=== PATIENT | female | born 1980 | race Caucasian/White ===

== ENCOUNTER 2023-07-18 15:55 | Outpatient (REF) | payer SELFPAY ==
[2023-07-19 14:16] LABS: BV Int Neg Control Negative (Negative); BV Int Pos Control Positive (Positive)
== END 2023-07-18 15:56 | disposition home or self-care (01) ==
LOC: HO.CHCLNP 15:55
PROVIDERS: Visit Provider Family Medicine
DX: N76.0 Acute vaginitis (principal)
CPT/HCPCS: 87480; 87510; 87660

== ENCOUNTER 2023-11-04 17:21 | Outpatient (REF) | payer OTHER, SELFPAY | END 2023-11-04 17:22 | disposition home or self-care (01) | LOC: HO.HHCLNP 17:21 | PROVIDERS: Visit Provider Family Medicine | DX: R30.0 Dysuria (principal); N89.8 Other specified noninflammatory disorders of vagina | CPT/HCPCS: 36415; 81513; 87086 ==

== ENCOUNTER 2024-07-07 13:08 | Outpatient (REF) | payer OTHER, SELFPAY | END 2024-07-07 13:09 | disposition home or self-care (01) | LOC: HO.CHCLNP 13:08 | PROVIDERS: Visit Provider Pediatrics | DX: R30.0 Dysuria (principal); R82.79 Other abnormal findings on microbiological examination of urine | CPT/HCPCS: 87086; 87088; 87186 ==

== ENCOUNTER 2024-11-19 13:58 | Outpatient (REF) | payer OTHER, SELFPAY ==
--- OUTSIDE RECORDS SUMMARY | 2024-11-19 16:35 | XMS_ITS | Encounter Summary ---
Author Organization [facility] Address [address] [place] [address] 7t [place] [address] Care Team Providers Care Director Of Cardiology Name Role Phone Kimber Solorio MD Primary Care Provider [phone] Encounter Details Date Type Department Care Team (Late st Contact Info) Description 08/25/2024 Orders Only [place] [facility] [address] [place] [address] Provider, MD Ade Social History Tobacco Use Types Packs/Day Years Used Date Smoking Tobacco: Never Passive Smoke Exposure: Never Smokeless Tobacco: Never Alcohol Use Standard Drinks/Week Comments Never 0 (1 standard drink = 0.6 oz pur e alcohol) Comments No Sex and Gender Information Value Date Recorded Sex Assigned at Female 08/27/2022 10:14 AM EDT Legal Sex Female 10:14 AM EDT Gender Identity Female 08/27/2022 10:14 AM EDT Sexual Orientation Straight 08/27/2022 10 :14 AM EDT documented as of this encounter Plan of Treatment Not on file documented as of this encounter Procedures Procedure Name Priority Date/Time Associated Diagnosis Comments MAMMO DIAGNOSTIC TOMOSYNTHESIS LEFT Routine 08/25/2024 1:53 PM EDT documented in this encounter Results * MAMMO DIAGNOSTIC TOMOSYNTHESIS LEFT (08/25/2024 1:53 PM EDT) Anatomical Region Laterality Modality Mammography Historical Provider MD NICHOLAS BI PROCEDURES Final R esult documented in this encounter Visit Diagnoses Not on filedocumented in this encounter Care Teams Director Of Cardiology Relationship Specialty Start Date End Date Kimber Solorio MD [address] [place], [place] [phone] PCP - General Family Medicine 07/06/20 documented as of this encounter
--- OUTSIDE RECORDS SUMMARY | 2024-11-19 16:35 | XMS_ITS | Encounter Summary ---
Author Organization [facility] [employer] Address [address] [facility] 7 [place] [address] Care Team Providers Care Art Critic Name Role Phone Kimber Solorio MD Primary Care Provider [phone] Reason for Visit * Reason Onset Date Comments Nurse Triage 09/25/2023 Encounter Details Date Type Department Care Team ([facility] st Contact Info) Description 09/25/2023 Telephone [facility] [address] [place], [place] [phone] Kimber Solorio MD [address] [place] [address] Nurse Triage Social History Tobacco Use Types Packs/Day Years [...] AM EDT documented as of this encounter Miscellaneous Notes * Telephone Encounter - Dayan Cortes RN - 09/25/2023 10:11 AM EST Triage call Pt was home tested + for Covid 09/23/23. Pt is calling with vaginal symptoms of itchiness, white cottage cheese like discharge. Pt has tried OTC antifungal medications without effect. Pt was prescribed metrondizole 0/75% 09/05/23 with good effect. Also diflucan 150mg prescribed 07/18/23.Pt is requesting medication prescription be sent to pharmacy. Advised will forward to PCP and nursing team for follow up and Pt agreed to this plan. Protocol Used: Vaginal Symptoms (Adult) Protocol-Based Disposition: See in Office or Video Visit within 3 Days Positive Triage Questions: * Symptoms of a yeast infection (i.e., itchy, white discharge, not bad smelling) and not improved > 3 days following Care Advice * Vaginal itching and not improved > 3 days following Care Advice * All higher-acuity triage questions were negative Care Advice Discussed: * Reassurance and Education - Vaginal Yeast Infection * Antifungal Medicine for Yeast Infection * Antifungal Medicine for Yeast Infection - Extra Notes and Warnings * Genital Hygiene * Expected Course * Reasons To Call Back - Vaginal discharge becomes yellow or green - Vaginal discharge becomes foul smelling or itchy - Fever or abdomen pain occur - You become worse * Telephone Encounter - Mahad Colon - 09/25/2023 9:47 AM EST Symptoms: Cough, Vaginal Symptoms - Not Bleeding Outcome: Schedule an appointment to be seen within 24 hours Reason: Caller denied all higher acuity questions documented in this encounter Plan of Treatment Not on file documented as of this encounter Visit Diagnoses Not on filedocumented in this encounter Care Teams Art Critic Relationship Specialty Start Date End Date Kimber Solorio MD [address] [place] [address] PCP - General Family Medicine 07/06/20 documented as of this encounter
--- OUTSIDE RECORDS SUMMARY | 2024-11-19 16:35 | XMS_ITS | Continuity of Care Document ---
Author Organization [facility] Address [address] [facility], 3[address] Floor, [address] [place] [address]- Support Name Relationship Address Phone RIN ASHFORD spouse Unknown Unavailab le RADHA, TERA mother Unknown Unavailab le RADHA, TERA mother Unknown Unavailab le Encounter [facility] Date(s): 04/14/24 - 10/30/24 [facility] [address] [facility] 3rd Floor, [address] [place] [address] Attending Physician: Henrry Gupta MD Admitting Physician: Henrry Gupta MD Encounter Type: Pre-OutPatient One Time Allergies, Adverse Reactions, Alerts Substance Criticality Severity Reaction Reaction Severity Status Compazine seizure Active Medications clobetasol 0.05% topical ointment See Instructions, Apply a pea sized amount to the symptomatic area of the vulva/perineum/anus once daily at bedtime for 4 weeks, then every 2-3 days for 4 weeks, then only as needed., # 30 Gm, 2 Refills, Maintenance, 07/01/24 2:17:00 PM EDT, Ointment, [id number], Partial fill upon patient request if the prescription is for a schedule II opioid drug., Apply a pea sized amount to the symptomatic area of the vulva/perineum/anus once daily at bedtime for 4 weeks, then every 2-3 days for 4 weeks, then only as needed., 162, cm, 07/01/24 13:41:00 EDT, Height Start Date: 07/01/24 Status: Ordered Quantity: 30.0 Unit: g Repeat number: 3 fluconazole 150 mg oral tablet 1 tablet = 150 mg, By Mouth, Once, Repeat dose if still having symptoms in 72 hours, # 2 tablet, 0 Refills, Soft Stop, 09/10/24 1:58:00 PM EST, Tablet, [id number], Partial fill upon patient request if the prescription is for a schedule II opioid drug., 162, cm, 09/08/24 9:27:00 EST, Height Start Date: 09/10/24 Status: Ordered Quantity: 2.0 Unit: tablet Repeat number: 1 No Home Meds Maintenance, 06/10/24 10:35:00 AM EDT, Supply Start Date: 06/10/24 Status: Ordered Repeat number: 1 Problem List Condition Confirmation Course Effective Dates Status Health St [facility]us Informant Hx pulmonary embolism Confirmed Active Social History Social History Type Response Smoking Status Never (less than 100 in lifetime) entered on: 02/08/21 Sex Female Sex Representation Female (finding) Patient Care team information Care Team Related Persons Name: TERA GARCIA Name: TERA GARCIA Name: RIN ASHFORD Insurance Providers Guarantor name: TERA GARCIA Health Plan Information #: 1 Payer: HMO [employer] Member Number: [id number] Policy Number: NA Group Number: [id number] Health Plan Information #: 2 Payer: [facility] Member Number: NA Policy Number: NA Group Number: [id number]
--- OUTSIDE RECORDS SUMMARY | 2024-11-19 16:35 | XMS_ITS | Clinical Summary ---
Author Organization [facility] [employer] Address [address] [facility] 7t [place] [address] Care Team Providers Care Aviation Electronic Warfare Operator Name Role Phone Kimber Solorio MD Primary Care Provider [phone] Allergies Active Allergy Reactions Criticality Noted Date Comments Prochlorperazine Anaphylaxis High 10/28/2005 Medications * This document contains information received from the source organization and may not represent a complete record from that organization. cholecalciferol (Vitamin D-3) 25 MCG (1000 UT) capsule Take 1 capsule by mouth. 08/28/20 22 Active hydrOXYzine pamoate (Vistaril) 25 MG capsule Take 1 capsule (25 mg) by mouth every 8 (eight) hours if needed for itching or anxiety for up to 20 days. 30 capsule 1 04/11/20 23 025 Discontin ued(Thera py completed ) metroNIDAZOLE (Metrogel) 0.75 % vaginal gel Use 1 applicator intravaginally 2 times per week for 4-6 months 70 g 5 09/05/20 23 025 Discontin ued(Thera py completed ) SUMAtriptan (Imitrex) 50 MG tablet Take 1 tablet (50 mg) by mouth 1 (one) time if needed for migraine for up to 9 doses. May repeat dose once in 2 hours if no relief. Do not exceed 2 doses in 24 hours. 9 tablet 03/07/20 24 025 Discontin ued(Thera py completed ) traMADol (Ultram) 50 MG tabletIndicatio ns:New onset headache Take 1 tablet (50 mg) by mouth every 6 (six) hours if needed for severe pain. 10 tablet 03/16/20 24 025 Discontin ued(Thera py completed ) cetirizine-pseu doephedrine (ZyrTEC-D) 5-120 MG 12 hr tabletIndicatio ns:Dysfunction of Eustachian tube, unspecified laterality Take 1 tablet by mouth 2 times daily. 20 tablet 03/16/20 24 025 Discontin ued(Thera py completed ) acetaminophen (Tylenol 8 Hour) 650 MG ER tablet Take 1 tablet (650 mg) by mouth every 8 (eight) hours if needed for mild pain. Do not crush, chew, or split. 30 tablet 2 03/31/20 24 025 Discontin ued(Thera py completed ) rizatriptan (Maxalt) 10 MG tabletIndicatio ns:New onset headache TAKE 1 TABLET (10 MG) BY MOUTH 1 (ONE) TIME IF NEEDED FOR MIGRAINE. MAY REPEAT IN 2 HOURS IF UNRESOLVED. DO NOT EXCEED 30 MG IN 24 HOURS. 9 tablet 3 04/13/20 24 025 Discontin ued(Thera py completed ) fluconazole (Diflucan) 150 MG tablet Take 1 tablet (150 mg) by mouth Once per day. Use 1 tablet PO once and repeat in 1 week if still symptomatic 2 tablet 05/25/20 24 025 Discontin ued(Thera py completed ) Active Problems Problem Noted Date Diagnosed Date New onset headache 03/16/2024 Assessment & Plan (03/17/2024 8:57 AM EDT): Patient not responsive to conservative treatment. Will switch triptan, if no improvement consider page hospitalte. Also will send trial of tramadol. Given worsening symptoms and new symptoms, refer to neuro. Per patient was seen in [facility] and had imaging done, requested nurse to get records Dysuria 11/04/2023 Assessment & Plan (11/04/2023 1:22 PM EST): Reports episodes of recurrent urinary infections and one hospitalization for E. Coli. Will send nitrofuratoin. Patient was unable to provide urine sample before she was seen. Will treat symptomatically, will send BV swab. Vaginosis 07/18/2023 Assessment & Plan (07/18/2023 3:36 PM EDT): Recurrent vaginitis, will send out For testing, she will be traveling so send dual therapy for her to take and will need to f/up with results, by visualization likely BV. Discussed with her that she could consider ppx moving forward if this is becoming recurrent Dysmenorrhea 05/16/2023 Assessment & Plan (05/16/2023 1:42 PM EDT): New onset dysmenorrhea (February 2023). Due to history of PE, unable to prescribe control. Referral to Hydropulper for dysmenorrhea. Anxiety disorder, unspecified 04/23/2023 Assessment & Plan (04/23/2023 10:17 AM EDT): Assessment: ?? Patient with anxiety (difficulty to control worry, nervousness, restlessness, racing thoughts, over thinking, periods of chest pain) and a history of trauma exposure (in adulthood, 20 years ago). Symptoms are in the context of biopsychosocial stressors. Patient will benefit from coping mechanisms and OP therapy. ?? At this time Cristy White meets criteria for Visit Diagnoses: Problem List Items Addressed This Visit ? Other ?? Anxiety disorder, unspecified ?? Patient ready to address current needs Yes ?? Strengths include strong supportive relationships with family and friends ?? PLAN: 1. Follow up with [facility]: Not recommended for follow-up 2. Patient goal is to engage in OP therapy. Decrease symptoms and increase coping mechanisms 3. Behavioral Recommendations a. 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 OP hterapy Pre-op evaluation 10/09/2022 Assessment & Plan (10/09/2022 3:29 PM EST): Patient was seen for pre-operative evaluation. Patient reports no symptoms of CP at rest or with exertion, dyspnea at rest or with exertion, PND, LE edema, claudication, or palpitations. Patient has no hx of ischemic heart disease, CHF, CVD, diabetes, recent anticoagulant or antithrombotic use, person or family hx of coagulopathy. She indeed was on anticoagulants in the past given a provoked PE. Patient reports no history of stress test, cardiac cath or coronary revascularization. Patients without any known cardiac risk factors ( no hx of ischemic heart disease, no h/o CVD, no h/o CHF, & no insulin dependent diabetes mellitus or known renal failure). Patient may proceed with intended procedure (abdominoplasty under general anesthesia). 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 She has gordy trying fioricet without relief, will start sumatriptan/naproxen abortive therapy, call back if not improving Assessment & Plan (05/16/2023 1:41 PM EDT): Patient requesting refill of her Fioricet Resolved Problems Problem Noted Date Diagnosed Date Resolved Date Staphylococcus aureus superf icial folliculitis 05/16/2023 11/19/2024 Pulmonary embolism 07/25/2020 Encounters Date Type Department Care Team Description 11/19/2024 1:30 PM EST Office Visit [facility] [address] [place] [address] Kimber Solorio MD Preop examination (Primary Dx) 11/19/2024 Travel 11/12/2024 Telephone [facility] [address] [place] [address] Kimber Solorio MD Chart Prep 11/02/2024 Telephone [facility] ADULT DENTAL [address] [place] [address] Gifty Carroll DDS partials appt bite reg 10/29/2024 Telephone [facility] [address] [place] [address] Kimber Solorio MD 09/09/2024 8:00 AM EST Office Visit [facility] [address] [place] [address] Gifty Carroll DDS 08/31/[address] [address] Kimber Solorio MD Pre Op 08/28/2024 3:00 PM EDT Office Visit [facility] [address] [place] [address] Alesia Nobles Dental calculus (Primary Dx) 08/25/2024 Orders Only [facility] [address] [place], [place] [phone] Ade Olea MD 08/21/2024 Telephone [facility] [address] [place], [place] [phone] Kimber Solorio MD Results from Last 3 Months Immunizations Name Administration Dates Next Due DTaP 11/29/1986, 3,1982,1981,1982 Hep B, Adolescent or Pediatric 05/16/1998,1997,11/10/1997 IPV 12/22/1986, 3,1982,1981,1982 Influenza Injectable Quadriv alant Preservative Free IIV4 MDCK 10/15/2017 Influenza injectable quadriv alent IIV4 with preservative 07/15/2019 Influenza injectable quadriv alent preservative free 08/28/2022,08/09/2021 Influenza, Split (incl. emory fied surface antigen) 07/01/2012 MMR 04/11/1983 Pfizer Covid-19 Vaccine 12+ 07/28/2021, 1 TD (adult), 2 Lf tetanus tox oid, preservative free, adsorbed 04/23/2008,01/12/1997 Td (adult), 5 Lf tetanus tox oid, preservative free, adsorbed 03/11/2007 Tdap 12/10/2019,01/20/2018 Varicella 11/10/1997 Social History Tobacco Use Types Packs/Day Years Used Date Smoking Tobacco: Never Passive Smoke Exposure: Never Smokeless Tobacco: Never Tobacco Cessation:Counseling Given: Not Answered Alcohol Use Standard Drinks/Week Comments Never 0 (1 standard drink = 0.6 oz pur e alcohol) Depression Answer Date Recorded Patient Health Questionnaire-9 Score 0 11/19/2024 Patient Health Questionnaire-9 Score 0 11/19/2024 Last PHQ-9: Questionnaire Data Not on file 0 11/19/2024 Housing Stability Answer Date Recorded What is your housing situation today? I have shun duff 11/19/[address] you li ve. Do you have problems with any of the following? None of the above 11/19/2024 Food Insecurity Answer Date Recorded Within the past 12 months, y ou worried that your food would run out before you got money to buy more: Never True 11/19/2024 Within the past 12 months,th e food you bought just didn't last and you didn't have enough money to get more: Never True Transportation Answer Date Recorded In the past 12 months, has l ack of transportation kept you from medical appts, meetings, work or from getting things needed for daily living? No 11/19/2024 Utilities Answer Date Recorded In the past 12 months, has t he electric, gas, oil or water company threatened to shut off services in your home? No 11/19/2024 Depression Answer Date Recorded Patient Health Questionnaire-2 Score 0 11/19/2024 Internet Access Answer Date Recorded Internet Access Q1 Yes 11/19/2024 Internet Access Q2 Not on file 11/19/2024 Comments No Sex and Gender Information Value Date Recorded Sex Assigned at Female 08/27/2022 10:14 AM EDT Legal Sex Female 10:14 AM EDT Gender Identity Female 08/27/2022 10:14 AM EDT Sexual Orientation Straight 08/27/2022 10 :14 AM EDT Last Filed Vital Signs Vital Sign Reading Time Taken Comments Blood Pressure 120/70 11/19/2024 1:53 PM EST Pulse 68 11/19/2024 1:27 PM EST Temperature 36.1 ??C (97 ??F) 11/19/2024 1:27 PM EST Respiratory Rate 20 11/19/2024 1:27 PM EST Oxygen Saturation 98% 11/19/2024 1:27 PM EST Inhaled Oxygen Concentration - - Weight 65.3 kg (144 lb) 11/19/2024 1:27 PM EST Height 165.1 cm (5' 5 ) 11/19/2024 1:27 PM EST Body Mass Index 23.96 11/19/2024 1:27 PM EST Plan of Treatment Health Maintenance Due Date Last Done Comments HIV Screening 1982 Family Planning (PISQ) 1997 COVID-19 Vaccine ( season) 2024 07/28/2021, 07/07/2021 Influenza Vaccine (#1) 2024 , 08/09/2021, 07/15/2019, Additional history exists Dental Oral Exam 09/21/2024 03/20/2024, 01/24/2023 Dental Prophylaxis 02/26/2025 08/28/2024, 0 03/20/2024, 01/24/2023 Dental X-Ray: Bitewings 04/18/2025 04/17/20, 03/20/2024, 01/24/2023 Tobacco Screening 09/09/2025 09/09/2024 Alcohol/Substance Use Screening 11/19/2025 11/19/2024 Depression Screening 11/19/2025 11/19/2024, 11/19/19 SDOH Screening 11/19/2025 11/19/2024 Mammogram 07/29/2026 07/29/2024 Dental X-Ray: Full Mouth 03/21/2027 03/20/2024 Cervical Cancer Screening 08/07/2028 HPV/Cotest 08/07/2028 08/07/2023 Pap Smear 08/07/2028 08/07/2023 DTaP/Tdap/Td Vaccines (7 - Td or Tdap) 12/10/2029 12/10/2019, 01/20/2018, 04/23/2008, Additional history exists Zoster Vaccines (1 of 2) 01/10/2032 RSV Patients and Patients Aged 60 years or older (1 - 1-dose 75+ series) 2057 IPV Vaccines Completed 12/22/1986, 10/28, 1982, Additional history exists Hepatitis B Vaccines Completed 05/16/1998, 12/14/1997, 11/10/1997 Hepatitis C Screening Completed 04/16/2023 HIB Vaccines Aged Out No longer eligi ble based on patient's age to complete this topic HPV Vaccines Aged Out No longer eligi ble based on patient's age to complete this topic Hepatitis A Vaccines Aged Out No long er eligible based on patient's age to complete this topic Meningococcal Vaccine Aged Out No sophia leonila eligible based on patient's age to complete this topic Pneumococcal Vaccine: Pediatrics (0 to 5 Years) and At-Risk Patients (6 to 64 Years) Aged Out No longer eligible based on patient's age to complete this topic RSV under 20 months Aged Out No longe r eligible based on patient's age to complete this topic Rotavirus Vaccines Aged Out No longer eligible based on patient's age to complete this topic Procedures Procedure Name Priority Date/Time Associated Diagnosis Comments DENTURE IMPRESSION Routine 09/09/2024 8: 00 AM EST ORAL HYGIENE INSTRUCTIONS Routine 08/28/2024 3:00 PM EDT ADJUNCTIVE GENERAL SERVICES - PROFESSIONAL VISITS - CASE PRESENTATION, SUBSEQUENT TO DETAILED AND EXTENSIVE TREATMENT PLANNING Routine 08/28/2024 3:00 PM EDT PROPHYLAXIS - ADULT Routine 08/28/2024 3 :00 PM EDT MAMMO DIAGNOSTIC TOMOSYNTHESIS LEFT Routine 08/25/2024 1:53 PM EDT BI MAMMOGRAM SCREENING TOMOSYNTHESIS BILATERAL Routine 07/29/2024 Breast cancer screening by mammogram BITEWING - SINGLE RADIOGRAPHIC IMAGE Routine 04/17/2024 8:00 AM EDT DIAGNOSTIC - DIAGNOSTIC IMAGING - INTRAORAL - COMPREHENSIVE SERIES OF RADIOGRAPHIC IMAGES Routine 03/20/2024 8:00 AM EDT PERIODIC ORAL EVALUATION - ESTABLISHED PATIENT Routine 03/20/2024 8:00 AM EDT HM PAP/HPV Routine 08/07/2023 HEPATITIS C AB W/REFL TO HCV RNA, QN, PCR Routine 04/16/2023 12:01 PM EDT Recurrent microscopic hematuria from Last 3 Months or Most Recently Relevant to Health Maintenance Results * MAMMO DIAGNOSTIC TOMOSYNTHESIS LEFT (08/25/2024 1:53 PM EDT) Anatomical Region Laterality Modality Mammography us Historical Provider IMUrmila BI PROCEDURES Final R esult * BI Mammogram Screening Tomosynthesis Bilateral (07/29/2024) Anatomical Region Laterality Modality Breast Bilateral Mammography Kimber NICHOLAS BI PROCEDURES Final Resul t * Hm Pap Smear (08/07/2023) Pap Negative for intraephithelial lesion or malignancy Negative for intraephithelial lesion or malignancy, Other HPV Undetected Undetected, Indeterminate, Quantitative, Not Detected Historical Provider HEALTH MAINTENANCE Final Result * Hepatitis C Antibody with Reflex to HCV, RNA, Quantitative, Real-Time PCR (04/16/2023 12:01 PM EDT) Hepatitis C Antibody NON-REACT COURTNEY NON-REACT COURTNEY [employer] [place] [employer] Comment: HCV antibody was non-reactive. There is no laboratory evidence of HCV infection. In most cases, no further action is required. However, if recent HCV exposure is suspected, a test for HCV RNA (test code 15812) is suggested. For additional information please refer to http://education.[address]/faq/KMC43h0 (This link is being provided for informational/ educational purposes only.) Blood Venous blood specimen / Unknown 04/16/2023 12:01 PM EDT 04/16/2023 12:01 PM EDT Kimber Solorio MD LAB BLOOD ORDERABLES Final Re sult [facility] [address], [place] [address] [employer] [place] [employer] [address] [place] [address] from Last 3 Months or Most Recently Relevant to Health Maintenance Insurance [facility] ST[facility] ADULT Care Teams Aviation Electronic Warfare Operator Relationship Specialty Start Date End Date Kimber Solorio MD [address] [place] [id number] PCP - General Family Medicine 07/06/20
--- OUTSIDE RECORDS SUMMARY | 2024-11-19 16:35 | XMS_ITS | Encounter Summary ---
Author Organization [employer] Address [address] [place] [address] [address] [place] [address] Care Team Providers Care Pepper Picker Name Role Phone Kimber Solorio MD Primary Care Provider [phone] Encounter Details Date Type Department Care Team (Latest Contact Info) Description 07/28/2021 Abstract [facility] CONVERSIONS Dental, Provider, DDS Social History Tobacco Use Types Packs/Day Years Used Date Smoking Tobacco: Never Assessed Comments Unknown Sex and Gender Information Value Date Recorded Sex Assigned at Female 08/27/2022 10:14 AM EDT Legal Sex Female 10:14 AM EDT Gender Identity Female 08/27/2022 10:14 AM EDT Sexual Orientation Straight 08/27/2022 10 :14 AM EDT documented as of this encounter Plan of Treatment Not on file documented as of this encounter Visit Diagnoses Not on filedocumented in this encounter Care Teams Pepper Picker Relationship Specialty Start Date End Date Kimber Solorio MD [address] [place] [address] PCP - General Family Medicine 07/06/20 documented as of this encounter
--- OUTSIDE RECORDS SUMMARY | 2024-11-19 16:35 | XMS_ITS | Encounter Summary ---
Author Organization [employer] Address [address] [place] [address] 7t [place] [address] Care Team Providers Care Referral And Information Aide Name Role Phone Kimber Solorio MD Primary Care Provider [phone] Encounter Details Date Type Department Care Team (Latest Contact Info) Description 12/01/2018 Abstract [facility] CONVERSIONS Dental, Provider, DDS Social History Tobacco [...] on filedocumented in this encounter Care Teams Referral And Information Aide Relationship Specialty Start Date End Date Kimber Solorio MD [address] [place] [address] PCP - General Family Medicine 07/06/20 documented as of this encounter
--- OUTSIDE RECORDS SUMMARY | 2024-11-19 16:35 | XMS_ITS | Clinical Summary ---
Author Organization [facility] Address [address] [place] [address] Phone Care Team Providers Care Social Welfare Administrator Name Role Phone Lissy Solorio MD Primary Care Provider [phone] Encounters Date Type Department Care Team Description 11/19/2024 2:27 PM EST Hospital Encounter [facility] Xray [address] [place] [phone] Encounter for other preprocedural examination 08/25/2024 7:11 AM EDT - 08/25/2024 11:59 PM EDT Hospital [facility]counter [facility] [address] [place] [phone] Lissy Solorio MD Discharge Disposition: Home or Self Care from Last 3 Months Surgical History Surgery Date Site/Laterality Comments SECTION PROCEDURE: SECTION Medical History Medical History Date Comments Pulmonary embolism (CMS/HCC) DX: Pulmonary embolism (HCC) Anxiety DX:Anxiety Nephrolithiasis DX:Nephrolithias is Family History Medical History Relation Name Comments Cancer Father's Sister Relation Name Status Comments Father's Sister Social History Tobacco Use Types Packs/Day Years Used Date Smoking Tobacco: Never Smokeless Tobacco: Never Alcohol Use Standard Drinks/Week Comments No 0 (1 standard drink = 0.6 oz pur e alcohol) Sex and Gender Information Value Date Recorded Sex Assigned at Female 11/19/2024 2:25 PM EST Gender Identity Female 11/19/2024 2:25 PM EST Sexual Orientation Straight 11/19/2024 2: 25 PM EST Job Start Date Occupation Industry Not on file Not on file Not on file Obstetrics History Plan of Treatment Upcoming Encounters Date Type Department Care Team (Late Contact Info) Description 02/23/2025 7:15 AM EDT [facility]ointment [facility] [place] [address] [place] [address] Health Maintenance Due Date Last Done Comments Hepatitis B Vaccines (1 of 3 - 19+ 3-dose series) 2001 05/16/1998, 12/14/1997, 11/10/1997 Cervical Cancer Screening: Pap Smear 2003 Depression Screening 09/29/2022 HIV Screening 09/29/2022 Hepatitis C Screening 09/29/2022 04/16/2023 Social Influencers of Health Screening 09/29/2022 COVID-19 Vaccine ( season) 2024 07/28/2021, 07/07/2021 Influenza Vaccine (#1) 2024 , 08/09/2021, 07/15/2019, Additional history exists Breast Cancer Screening 08/21/2026 08/21/2024 DTaP,Tdap,and Td Vaccines (2 - Td or Tdap) 01/21/2028 12/10/2019, 01/20/2018, 04/23/2008, Additional history exists HIB Vaccines Aged Out No longer eligi ble based on patient's age to complete this topic HPV Vaccines Aged Out No longer eligi ble based on patient's age to complete this topic Hepatitis A Vaccines Aged Out No long er eligible based on patient's age to complete this topic IPV Vaccines Aged Out 12/22/1986, 10/28, 1982, Additional history exists No longer eligible based on patient's age to complete this topic MMR Vaccines Aged Out 04/11/1983 No longer eligi ble based on patient's age to complete this topic Meningococcal ACWY Vaccine Aged Out N o longer eligible based on patient's age to complete this topic Pneumococcal Vaccine: Pediatrics (0 to 5 Years) and At-Risk Patients (6 to 64 Years) Aged Out No longer eligible based on patient's age to complete this topic RSV Immunization Patients Under 20 months Aged Out No longer eligible based on patient's age to complete this topic Varicella Vaccines Aged Out 11/10/1997 No longer eligible based on patient's age to complete this topic Procedures Procedure Name Priority Date/Time Associated Diagnosis Comments [facility] UNI DIAG DIGITAL LT Routine 08/25/2024 8:22 AM EDT [facility] SCREENING DIGITAL Routine 08/21/2024 7:43 AM EDT Encounter for screening mammogram for malignant neoplasm of breast from Last 3 Months Results * [facility] UNI DIAG DIGITAL LT (08/25/2024 8:22 AM EDT) Anatomical Region Laterality Modality Mammography 08/25/2024 7:04 AM EDT Narrative 08/25/2024 8:22 AM EDT [facility] Diagnostic Imaging Department [address] [place] [address] Patient: ??CRISTY WHITE ?/Age/Sex: 1980 - 44 - F Unit#: ??[id number] ? Location/Status: ??SPDIMAM/REG CLI ? Mnemonic/Ordering Site: ??DIGDXLT/SPMAM Ordering Physician: ??LISSY SOLORIO [facility] Uni Diag Digital LT - 08/25/24 14 Report Status:Signed HISTORY: The patient is a 44-year-old female. ??Baseline screening mammography performed 07/29/2024 demonstrated calcifications in the upper-outer quadrant of the left breast. ??The patient now presents for supplementary imaging. FINDINGS: Digital mammography of the left breast in magnification true lateral and CC projections is performed. ??The study demonstrates multiple punctate microcalcifications spread throughout the upper outer quadrant of the left breast. ??No definite true cluster is identified on 2 views. ??These are nonlayering and demonstrate no pleomorphism or branching. IMPRESSION: Multiple microcalcifications are present in the upright quadrant of the left breast, without definite suspicious features. ??Follow-up mammography of the left breast in 6 months, to include magnification views, is recommended to evaluate for stability of this finding. BIRADS Code Class 3: ??Probably Benign Finding - Short Interval Follow-up Is Suggested [place] CPT II 3343F Code 13531, 84679 Dictating Physician: ??GERALD WALKER MD Electronically Signed by: ??GERALD WALKER MD Dic Date/Time: ??08/25/24816 Sign date/Time: ??08/25/24821 Procedure Note Gerald Walker MD - 08/29/2024 [facility] Diagnostic Imaging Department [address] [place] [address] Patient: CRISTY WHITE /Age/Sex: 1980 - 44 - F Unit#: [id number] Location/Status: [facility] CLI Mnemonic/Ordering Site: DIGDXLT/SPMAM Ordering Physician: LISSY SOLORIO [facility] Diag Digital LT - 08/25/24822 Report Status:Signed HISTORY: The patient is a 44-year-old female. Baseline screeningmammography performed 07/29/2024 demonstrated calcifications in the upper-outerquadrant of the left breast. The patient now presents for supplementary imaging. FINDINGS: Digital mammography of the left breast in magnification truelateral and CC projections is performed. The study demonstrates multiplepunctate microcalcifications spread throughout the upper outer quadrant of theleft breast. No definite true cluster is identified on 2 views. These are nonlayering and demonstrate no pleomorphism or branching. IMPRESSION: Multiple microcalcifications are present in the uprightquadrant of the left breast, without definite suspicious features. Follow-upmammography of the left breast in 6 months, to include magnification views, isrecommended to evaluate for stability of this finding. BIRADS Code Class 3: Probably Benign Finding - Short Interval Follow-upIs Suggested PQRI CPT II 3343F Code 70573, 55831 Dictating Physician: GERALD WALKER MD Electronically Signed by: GERALD WALKER MD Dic Date/Time: 08/25/24816 Sign date/Time: 08/25/24821 Lissy Solorio MD IMG BI PROCEDURES * [facility] SCREENING DIGITAL (08/21/2024 7:43 AM EDT) Anatomical Region Laterality Modality Mammography 07/29/2024 7:04 AM EDT Narrative 08/21/2024 7:43 AM EDT [facility] Diagnostic Imaging Department [address] [place], [place] [phone] Patient: ??CRISTY WHITE ?/Age/Sex: 1980 - - Unit#: ??[id number] ? Location/Status: ??SPDIMAM/REG CLI ? Mnemonic/Ordering Site: ??DIGSC/SPMAM Ordering Physician: ??LISSY SOLORIO [facility] Screening Digital - 07/29/24722 Report Status:Signed EXAM: [facility] Screening Digital EXAM DATE AND TIME: 07/29/2024 7:24 AM HISTORY: ??Annual screening COMPARISON: ??Prior images from [facility] were unable to be obtained. TECHNIQUE: Bilateral digital breast tomosynthesis was performed in the CC and MLO projections. Computer aided detection with [employer] 7.2-H and GPN[employer] 3D 3.1 was employed. TISSUE DENSITY: c. The breasts are heterogeneously dense, which may obscure small masses. FINDINGS: There are regional calcifications in the left upper outer breast. ??No suspicious masses, calcifications or architectural distortion in the right breast. IMPRESSION: Calcifications in the left breast. ??Magnification views recommended. A negative mammogram in the presence of a clinically suspicious palpable abnormality does not preclude the possibility of malignancy or alter the indications for biopsy. BI-RADS: ??Category 0: Incomplete - Need Additional Imaging Evaluation RECOMMENDATION(S): 1: Left diagnostic mammogram. Dictating Physician: ??CHELSI ALVAREZ MD Electronically Signed by: ??CHELSI ALVAREZ MD Dic Date/Time: ??08/21/2439 Sign date/Time: ??08/21/2443 Procedure Note Chelsi Alvarez MD - 08/29/2024 [facility] Diagnostic Imaging Department [address] [place] [address] Patient: CRISTY WHITE /Age/Sex: 1980 - 44 - F Unit#: [id number] Location/Status: SPDIMAM/REG CLI Mnemonic/Ordering Site: [facility] Ordering Physician: LISSY SOLORIO [facility] Screening Digital - 07/29/24722 Report Status:Signed EXAM: [facility] Screening Digital EXAM DATE AND TIME: 07/29/2024 7:24 AM HISTORY: Annual screening COMPARISON: Prior images from [facility] were unable to be obtained. TECHNIQUE: Bilateral digital breast tomosynthesis was performed in the CCand MLO projections. Computer aided detection with [employer] 7.2-H andGPNX 3D 3.1 was employed. TISSUE DENSITY: c. The breasts are heterogeneously dense, which mayobscure small masses. FINDINGS: There are regional calcifications in the left upper outer breast. No suspicious masses, calcifications or architectural distortion in theright breast. IMPRESSION: Calcifications in the left breast. Magnification views recommended. A negative mammogram in the presence of a clinically suspicious palpable abnormality does not preclude the possibility of malignancy or alter the indications for biopsy. BI-RADS: Category 0: Incomplete - Need Additional Imaging Evaluation RECOMMENDATION(S): 1: Left diagnostic mammogram. Dictating Physician: CHELSI ALVAREZ MD Electronically Signed by: CHELSI ALVAREZ MD Dic Date/Time: 08/21/24738 Sign date/Time: 08/21/24742 Lissy Solorio MD IMG BI PROCEDURES from Last 3 Months Advance Directives Documents on File Type Date Recorded Patient Social Work Manager Expl anation Health Care Decision (hx) 12/27/2014 AD MOORE DIRECTIVE Health Care Decision (hx) 12/27/2014 AD MOORE DIRECTIVE Health Care Decision (hx) 12/27/2014 AD MOORE DIRECTIVE Health Care Decision (hx) 12/27/2014 AD MOORE DIRECTIVE Health Care Decision (hx) 12/27/2014 AD MOORE DIRECTIVE Health Care Decision (hx) 12/27/2014 AD MOORE DIRECTIVE Health Care Decision (hx) 12/27/2014 AD MOORE DIRECTIVE Health Care Decision (hx) 12/27/2014 AD MOORE DIRECTIVE Health Care Decision (hx) 12/27/2014 AD MOORE DIRECTIVE Health Care Decision (hx) 12/27/2014 AD MOORE DIRECTIVE Health Care Decision (hx) 12/27/2014 AD MOORE DIRECTIVE Health Care Decision (hx) 12/27/2014 AD MOORE DIRECTIVE Health Care Decision (hx) 12/27/2014 AD MOORE DIRECTIVE Health Care Decision (hx) 12/27/2014 AD MOORE DIRECTIVE Health Care Decision (hx) 12/27/2014 AD MOORE DIRECTIVE Care Teams Social Welfare Administrator Relationship Specialty Start Date End Date Lissy Solorio MD [address] [place] [address] PCP - General 07/25/20
--- OUTSIDE RECORDS SUMMARY | 2024-11-19 16:35 | XMS_ITS | Encounter Summary ---
Author Organization [employer] Address [address] [facility] 7 [place] [address] Care Team Providers Care Phlebotomist Supervisor/Instructor Name Role Phone Kimber Solorio MD Primary Care Provider [phone] Reason for Visit * Reason Onset Date Comments Appointment Request 08/22/2023 Encounter Details Date Type Department Care Team ([facility] st Contact Info) Description 08/22/2023 Telephone [facility] MED & PEDS [address] [place], [place] [phone] Kimber Solorio MD [address] [place] [address] Appointment Request Social History Tobacco Use Types Packs/Day Years [...] encounter Miscellaneous Notes * Telephone Encounter - Mallory Quezada - 08/22/2023 12:52 PM EDT Tc from pt requesting an appointment with PCP. Pt was told by Car Inspector to f/u with PCP on prescribingmedication to prevent BV and yeast infection. Please contact pt at [phone] documented in this encounter Plan of Treatment Not on file documented as of this encounter Visit Diagnoses Not on filedocumented in this encounter Care Teams Phlebotomist Supervisor/Instructor Relationship Specialty Start Date End Date Kimber Solorio MD [address] [place] [address] PCP - General Family Medicine 07/06/20 documented as of this encounter
--- OUTSIDE RECORDS SUMMARY | 2024-11-19 16:35 | XMS_ITS | Encounter Summary ---
Author Organization [facility] Address [address] [place] [address] 7[address] [place] [address] Care Team Providers Care Production Welding Supervisor Name Role Phone Kimber Solorio MD Primary Care Provider [phone] Encounter Details Date Type Department Care Team (Late st Contact Info) Description 03/04/2024 Orders Only [facility] [address] [place] [address] Provider, MD Ade Social History Tobacco Use [...] Procedure Name Priority Date/Time Associated Diagnosis Comments XR CHEST 2 VIEWS Routine 03/04/2024 1:59 PM EDT documented in this encounter Results * XR Chest 2 Views (03/04/2024 1:59 PM EDT) Anatomical Region Laterality Modality Chest Radiographic Maryann ging us Historical Provider MD NICHOLAS XR PROCEDURES Final R esult documented in this encounter Visit Diagnoses Not on filedocumented in this encounter Care Teams Production Welding Supervisor Relationship Specialty Start Date End Date Kimber Solorio MD [address] [place] [address] PCP - General Family Medicine 07/06/20 documented as of this encounter
--- OUTSIDE RECORDS SUMMARY | 2024-11-19 16:35 | XMS_ITS | Encounter Summary ---
Author Organization [employer] Address [address] [facility] 7t [place] [address] Care Team Providers Care Ferryboat Ticket Taker Name Role Phone Kimber Solorio MD Primary Care Provider [phone] Encounter Details Date Type Department Care Team ([facility] st Contact Info) Description 11/19/2024 1:30 PM EST Office Visit [facility] CHC MED & PEDS [address] [place], [place] [phone] Kimber Solorio MD [address] [place], [place] [phone] Preop examination (Primary Dx) Social History Tobacco Use Types Packs/Day Years [...] AM EDT documented as of this encounter Last Filed Vital Signs Vital Sign Reading [...] Mass Index 23.96 11/19/2024 1:27 PM EST documented in this encounter Plan of Treatment Scheduled Orders Name Type Priority Associated Diagnoses Orde r Schedule CBC auto differential Lab Routine Preop examination Expected: 11/19/2024 (Approximate), Expires: 11/19/2025 HIV-1/2 Antigen and Antibodies, Fourth Generation, with Reflexes Lab Routine Preop examination Expected: 11/19/2024 (Approximate), Expires: 11/19/2025 Comprehensive Metabolic Panel Lab Routine Preop examination Expected: 11/19/2024 (Approximate), Expires: 11/19/2025 TSH Lab Routine Preop examination Expected: 11/19/2024 (Approximate), Expires: 11/19/2025 Prothrombin Time-INR Lab Routine Preop examination Expected: 11/19/2024, Expires: 11/19/2025 XR Chest 2 Views Imaging Routine Preop examination Expected: 11/19/2024, Expires: 11/19/2025 documented as of this encounter Visit Diagnoses Diagnosis Preop examination- Primary Unspecified pre-operative examination documented in this encounter Additional Health Concerns Assessment Noted Time PHQ-9 Depression Total Score: 0 11/19/19 25 1:42 PM EST documented as of this encounter Care Teams Ferryboat Ticket Taker Relationship Specialty Start Date End Date Kimber Solorio MD [address] [place] [address] PCP - General Family Medicine 07/06/20 documented as of this encounter
--- OUTSIDE RECORDS SUMMARY | 2024-11-19 16:35 | XMS_ITS | Encounter Summary ---
Author Organization [facility] Address [address] [place] [address] Care Team Providers Care Cyber Security Analyst Name Role Phone Kimber Solorio MD Primary Care Provider [phone] Encounter Details Date Type Department Care Team (Latest Contact Info) Description 11/19/2024 2:27 PM EST Hospital Encounter [facility] Xray [address] [place] [address] Encounter for other preprocedural examination Social History Tobacco Use Types Packs/Day Years [...] file Not on file Not on file documented as of this encounter Plan of Treatment Upcoming Encounters Date Type Department Care Team (Late st Contact Info) Description 02/23/2025 7:15 AM EDT Appointment [facility] [address] [place] [address] Pending Results Name Type Priority Associated Diagnoses Date /Time XR Chest 2 Views Imaging Routine Encounter for other preprocedural examination 11/19/2024 2:44 PM EST Scheduled Orders Name Type Priority Associated Diagnoses Orde r Schedule XR Chest 2 Views Imaging Routine Encounter for other preprocedural examination Once for 1 Occurrences starting 11/19/2024 until 11/19/2024 documented as of this encounter Visit Diagnoses Diagnosis Encounter for other preprocedural examination documented in this encounter Care Teams Cyber Security Analyst Relationship Specialty Start Date End Date Kimber Solorio MD [address] [place] [phone] PCP - General 07/25/20 documented as of this encounter
--- OUTSIDE RECORDS SUMMARY | 2024-11-19 16:35 | XMS_ITS | Encounter Summary ---
Author Organization [employer] Address [address] [place] [address] 7[address] [place] [address] Care Team Providers Care Furniture Shampooer Name Role Phone Kimber Solorio MD Primary Care Provider [phone] Encounter Details Date Type Department Care Team (Late st Contact Info) Description 12/11/2023 Telephone [facility] MEDICINE [address] [place], [place] [phone] Kimber Solorio MD [address] [place] [address] Social History Tobacco Use Types Packs/Day Years [...] on filedocumented in this encounter Care Teams Furniture Shampooer Relationship Specialty Start Date End Date Kimber Solorio MD [address] [place] [address] PCP - General Family Medicine 07/06/20 documented as of this encounter
--- OUTSIDE RECORDS SUMMARY | 2024-11-19 16:35 | XMS_ITS | Encounter Summary ---
Author Organization [employer] Address [address] [facility] 7t [place] [address] Care Team Providers Care Licensing Court Magistrate Name Role Phone Kimber Solorio MD Primary Care Provider [phone] Reason for Visit * Reason Onset Date Comments partials appt bite reg 11/02/2024 Encounter Details Date Type Department Care Team (Late st Contact Info) Description 11/02/2024 Telephone [facility] [address] [place] [address] Gifty Carroll, MARLENES [address] [place] [address] partials appt bite reg Social History Tobacco Use Types Packs/Day Years [...] encounter Miscellaneous Notes * Telephone Encounter - Daisy Capps - 11/02/2024 1:04 PM EST Patient is looking to schedule her next appt bite reg. She is looking specifically to be seen on 11/19 in the afternoon. Please reach out to patient for scheduling. Was unable to connect earlier today documented in this encounter Plan of Treatment Not on file documented as of this encounter Visit Diagnoses Not on filedocumented in this encounter Care Teams Licensing Court Magistrate Relationship Specialty Start Date End Date Kimber Solorio MD [address] [place] [address] PCP - General Family Medicine 07/06/20 documented as of this encounter
--- OUTSIDE RECORDS SUMMARY | 2024-11-19 16:35 | XMS_ITS | Encounter Summary ---
Author Organization [employer] Address [address] [facility] 7 [place] [address] Care Team Providers Care Ethylbenzene Oxidizer Name Role Phone Kimber Solorio MD Primary Care Provider [phone] Reason for Visit * Reason Onset Date Comments Nurse Triage 05/10/2023 Encounter Details Date Type Department Care Team ([facility] st Contact Info) Description 05/10/2023 Telephone [facility] CHC MED & PEDS [address] [place], [place] [phone] Kimber Solorio MD [address] [place] [address] Nurse Triage Social History Tobacco Use Types Packs/Day Years Used Date Smoking Tobacco: Never Passive Smoke Exposure: Never Smokeless Tobacco: Never Alcohol Use Standard Drinks/Week Comments Never 0 (1 standard drink = 0.6 oz pur e alcohol) Comments Unknown Sex and Gender Information Value Date Recorded Sex Assigned at Female 08/27/2022 10:14 AM EDT Legal Sex Female 10:14 AM EDT Gender Identity Female 08/27/2022 10:14 AM EDT Sexual Orientation Straight 08/27/2022 10 :14 AM EDT COVID-19 Exposure Response Date Recorded In the last 10 days, have yo u been in contact with someone who was confirmed or suspected to have Coronavirus/COVID-19? No / Unsure 04/16/2023 11:16 AM EDT documented as of this encounter Miscellaneous Notes * Telephone Encounter - Dayan Cortes RN - 05/10/2023 4:13 PM EDT Triage call Pt was last seen in ED [facility] 04/23 for abdominal cramping due to menstrual cycle. Pt is calling regarding abdominal pain with menstrual cramping. Pt reports this has been happening for the last two months and Pt is noting acne outbreak on buttocks. Pt reports vaginal bleeding lasts for 3 days, the first 2 days with heavy bleeding. Pt had tubal ligation and doesn't take birthcontrol. Pt reports ibuprofen and heat help with discomfort. Apt with Dr. Solorio 05/16 @ 115pm. Insurance is verified as active prior to booking. Protocol Used: Abdominal Pain - Menstrual Cramps (Adult) Protocol-Based Disposition: See in Office or Video Visit within 2 Weeks Positive Triage Question: * Moderate pain (e.g., cramps interfere with normal activities) and not relieved by ibuprofen or naproxen used per Care Advice * All higher-acuity triage questions were negative Care Advice Discussed: * Reassurance and Education - Menstrual Cramps * General Health * Heat * Pain Medicines for Menstrual Cramps * Pain Medicines - Extra Notes and Warnings * Test, When in Doubt * Reasons To Call Back - Severe pain and not adequately relieved by ibuprofen or naproxen - Your cramps cause you to miss work, school, or other important activities - Your cramps last over 3 days - You become worse * Telephone Encounter - Mallory Quezada - 05/10/2023 3:51 PM EDT Symptoms: Abdominal Pain - Female - Not , Menstrual Cramps Outcome: Schedule an urgent appointment (within 4 hours) or talk to a nurse or provider soon Reason: Getting worse, requesting f/u appnt The caller accepted this outcome documented in this encounter Plan of Treatment Not on file documented as of this encounter Visit Diagnoses Not on filedocumented in this encounter Care Teams Ethylbenzene Oxidizer Relationship Specialty Start Date End Date Kimber Solorio MD [address] [place] [address] PCP - General Family Medicine 07/06/20 documented as of this encounter
--- OUTSIDE RECORDS SUMMARY | 2024-11-19 16:35 | XMS_ITS | Encounter Summary ---
Author Organization [employer] Address [address] [place] [address] [address] [place] [address] Care Team Providers Care Janitor Supervisor Name Role Phone Kimber Solorio MD Primary Care Provider [phone] Encounter Details Date Type Department Care Team ([facility] st Contact Info) Description 03/12/2023 Abstract [facility] CHC MED & PEDS [address] [place] [address] Kimber Solorio MD [address] [place] [address] Social History Tobacco Use Types Packs/Day Years [...] suspected to have Coronavirus/COVID-19? No / Unsure 03/07/2023 1:54 PM EDT documented as of this encounter Plan of Treatment Not on file documented as of this encounter Visit Diagnoses Not on filedocumented in this encounter Care Teams Janitor Supervisor Relationship Specialty Start Date End Date Kimber Solorio MD [address] [place] [address] PCP - General Family Medicine 07/06/20 documented as of this encounter
--- OUTSIDE RECORDS SUMMARY | 2024-11-19 16:35 | XMS_ITS | Encounter Summary ---
Author Organization [employer] Address [address] [facility] 7 [place] [address] Care Team Providers Care Product Delivery Specialist Name Role Phone Kimber Solorio MD Primary Care Provider [phone] Reason for Visit * Reason Onset Date Comments Chart Prep 11/12/2024 Encounter Details Date Type Department Care Team ([facility] st Contact Info) Description 11/12/2024 Telephone [facility] CHC MED & PEDS [address] [place], [place] [phone] Kimber Solorio MD [address] [place] [address] Chart Prep Social History Tobacco Use Types Packs/Day Years [...] encounter Miscellaneous Notes * Telephone Encounter - Kala Colon MA - 11/12/2024 4:15 PM EST Chart Prep Labs: not applicable Images: done Vaccines due: yes Referrals: complete Screenings: STI screening Overdue care gaps: Sbirt, SDOH, PHQ-9, Oral Health, disability screening documented in this encounter Plan of Treatment Not on file documented as of this encounter Visit Diagnoses Not on filedocumented in this encounter Care Teams Product Delivery Specialist Relationship Specialty Start Date End Date Kimber Solorio MD [address] [place] [address] PCP - General Family Medicine 07/06/20 documented as of this encounter
--- OUTSIDE RECORDS SUMMARY | 2024-11-19 16:35 | XMS_ITS | Encounter Summary ---
Author Organization [employer] Address [address] [facility] 7t [place] [address] Care Team Providers Care Bradder Name Role Phone Kimber Solorio MD Primary Care Provider Encounter Details Date Type Department Care Team ([facility] st Contact Info) Description 10/29/2024 Telephone [facility] CHC MED & PEDS [address] [place], [place] [phone] Kimber Solorio MD [address] [place], [place] [phone] Social History Tobacco Use Types Packs/Day Years [...] encounter Miscellaneous Notes * Telephone Encounter - Glenna Jaimes RN - 11/02/2024 9:38 AM EST TC to pt to discuss xray and EKG. Patient states her surgeon, wants everything taken care of BEFORE her appointment on 11/19/24 with my PCP. Explained to patient that EKG and Xray would be taken care of at pre-op appointment, and all information sent to her surgeon. Patient stated understanding. * Telephone Encounter - Sherlyn Bales - 11/02/2024 9:07 AM EST Tc from pt calling to inform is unable to wait till next appt on 11/19/23 . States needs EKG and xray done ARI. Please call pt to clarify. * Telephone Encounter - Amelia Chamorro RN - 10/29/2024 3:25 PM EST Pt has upcoming appt preop with PCP on 11/19/23. * Telephone Encounter - Sherlyn Bales - 10/29/2024 3:06 PM EST Tc from pt requesting orders for EKG and xray. States has an up coming procedure 12/10/24 and needsdone ari. Please call pt to clarify. documented in this encounter Plan of Treatment Not on file documented as of this encounter Visit Diagnoses Not on filedocumented in this encounter Care Teams Bradder Relationship Specialty Start Date End Date Kimber Solorio MD [address] [place] [id number] PCP - General Family Medicine 07/06/20 documented as of this encounter
--- OUTSIDE RECORDS SUMMARY | 2024-11-19 16:35 | XMS_ITS | Continuity of Care Document ---
Author Organization [facility] Address [address] [facility], 3r d Floor, [address] [place] [address]- Support Name Relationship Address Phone RIN ASHFORD spouse Unknown Unavailab le RADHA, TERA mother Unknown Unavailab le RADHA, TERA mother Unknown Unavailab le [place] [facility] [place]): 09/30/24 - 10/30/24 [facility] [address] [facility] 3rd Floor, [address] [place] [id number] Attending Physician: Meri Reed Admitting Physician: AdmMeri wu Referring Physician: Admtr ArHans Encounter Type: Triage Allergies, Adverse Reactions, Alerts Substance Criticality Severity [...] GARCIA Health Plan Information #: 1 Payer: [employer] Member Number: NA Policy Number: NA Group Number: [id number]
--- OUTSIDE RECORDS SUMMARY | 2024-11-19 16:35 | XMS_ITS | Encounter Summary ---
Author Organization [employer] Address [address] [facility] 7 [place] [address] Care Team Providers Care Histology Technician Name Role Phone Kimber Solorio MD Primary Care Provider [phone] Reason for Visit * Reason Onset Date Comments Results 11/26/2023 Encounter Details Date Type Department Care Team ([facility] st Contact Info) Description 11/26/2023 Telephone [facility] CHC MED & PEDS [address] [place], [place] [phone] Kimber Solorio MD [address] [place] [address] Results Social History Tobacco Use Types Packs/Day Years [...] encounter Miscellaneous Notes * Telephone Encounter - Amelia Chamorro RN - 11/28/2023 12:34 PM EST Returned call to pt regarding message below. Informed pt that US was ordered by [facility] and needs to contact them for results. Pt verbalized understanding and agrees with plan. * Telephone Encounter - Pamela Godfrey - 11/28/2023 11:13 AM EST Tc from pt calling again in regards results. * Telephone Encounter - Sherlyn Amairani - 11/26/2023 8:41 AM EST TC from pt requesting call back regarding Results. Type of results: US Date when done: 11/23/23 Facility: [facility] documented in this encounter Plan of Treatment Not on file documented as of this encounter Visit Diagnoses Not on filedocumented in this encounter Care Teams Histology Technician Relationship Specialty Start Date End Date Kimber Solorio MD [address] [place] [phone] PCP - General Family Medicine 07/06/20 documented as of this encounter
--- OUTSIDE RECORDS SUMMARY | 2024-11-19 16:35 | XMS_ITS | Encounter Summary ---
Author Organization [employer] Address [address] [facility] 7 [place] [address] Care Team Providers Care Solid Center Winder Name Role Phone Kimber Solorio MD Primary Care Provider [phone] Reason for Visit * Reason Onset Date Comments Referral 04/01/2024 Encounter Details Date Type Department Care Team ([facility] st Contact Info) Description 04/01/2024 Telephone [facility] CHC MED & PEDS [address] [place], [place] [phone] Kimber Solorio MD [address] [place] [address] Referral Social History Tobacco Use Types Packs/Day Years [...] Miscellaneous Notes * Telephone Encounter - Mallory Damien - 04/01/2024 9:59 AM EDT TC from pt requesting new referral : DATE: n/a TIME: n/a Address: [address] [place] [address], [address] [place] [address] Visits: n/a Facility Name: [facility] Type of Specialist: dermatology DX: Huy Phone # : [phone] Fax #: [phone] documented in this encounter Plan of Treatment Not on file documented as of this encounter Visit Diagnoses Not on filedocumented in this encounter Care Teams Solid Center Winder Relationship Specialty Start Date End Date Kimber Solorio MD [address] [place] [id number] PCP - General Family Medicine 07/06/20 documented as of this encounter
--- OUTSIDE RECORDS SUMMARY | 2024-11-19 16:35 | XMS_ITS | Encounter Summary ---
Author Organization [employer] Address [address] [facility] 7 [place] [address] Care Team Providers Care Grief Counselor Name Role Phone Kimber Solorio MD Primary Care Provider Reason for Visit * Reason Onset Date Comments Referral 03/05/2024 Encounter Details Date Type Department Care Team ([facility] st Contact Info) Description 03/05/2024 Telephone [facility] CHC MED & PEDS [address] [place], [place] [phone] Kimber Solorio MD [address] [place] [address] Referral Social History Tobacco Use Types Packs/Day [...] Telephone Encounter - Amelia Chamorro RN - 03/06/2024 2:44 PM EDT Returned call to pt regarding message below. Pt states migraine started almost 2 weeks ago and has been non stop. Pt states going to the ED as no meds she takes have had any effect on her. Pt requesting a neuro referral. Pt endorses light and smell sensitivity, nausea, and unable to function. 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 ED notes in chart. Pt agrees to telephone visit tomorrow. * Telephone Encounter - Mallory Damien - 03/05/2024 8:50 AM EDT Tc from pt requesting a referral to neurologist for migraines. Pt states went to [facility] on 03/04 for migraines and was advised to call primary and requesting referral. Please contact pt at [phone] documented in this encounter Plan of Treatment Not on file documented as of this encounter Visit Diagnoses Not on filedocumented in this encounter Care Teams Grief Counselor Relationship Specialty Start Date End Date Kimber Solorio MD [address] [place] [id number] PCP - General Family Medicine 07/06/20 documented as of this encounter
--- OUTSIDE RECORDS SUMMARY | 2024-11-19 16:35 | XMS_ITS | Encounter Summary ---
Author Organization [employer] Address [address] [facility] 7t [place] [address] Care Team Providers Care Screen Roller Name Role Phone Kimber Solorio MD Primary Care Provider [phone] Encounter Details Date Type Department Care Team (Latest Contact Info) Description 11/19/2024 Travel Social History Tobacco Use Types Packs/Day Years [...] Diagnoses Not on filedocumented in this encounter Additional Health Concerns Assessment Noted Time PHQ-9 Depression Total Score: 0 11/19/19 25 1:42 PM EST documented as of this encounter Care Teams Screen Roller Relationship Specialty Start Date End Date Kimber Solorio MD [address] [place] [address] PCP - General Family Medicine 07/06/20 documented as of this encounter
--- OUTSIDE RECORDS SUMMARY | 2024-11-19 16:35 | XMS_ITS | Encounter Summary ---
Author Organization [employer] [facility] Address [address] [facility] 7t [place] [address] Care Team Providers Care Tableau Architect Name Role Phone Kimber Solorio MD Primary Care Provider Encounter Details Date Type Department Care Team (Late st Contact Info) Description 03/05/2024 Orders Only [facility] [address] [place] [address] Provider, MD Ade Social History Tobacco Use [...] Procedure Name Priority Date/Time Associated Diagnosis Comments CT HEAD WO CONTRAST Routine 03/04/2024 1:51 PM EDT documented in this encounter Results * CT Head w/o Contrast (03/04/2024 1:51 PM EDT) Anatomical Region Laterality Modality Head, Neck Computed Tomogra phy Historical Provider MD NICHOLAS CT PROCEDURES Final R esult documented in this encounter Visit Diagnoses Not on filedocumented in this encounter Care Teams Tableau Architect Relationship Specialty Start Date End Date Kimber Solorio MD [address] [place], [place] [phone] PCP - General Family Medicine 07/06/20 documented as of this encounter
--- OUTSIDE RECORDS SUMMARY | 2024-11-19 16:35 | XMS_ITS | Encounter Summary ---
Author Organization [employer] Address [address] [place] [address] 7 [place] [address] Care Team Providers Care Director Of Quantitative Research Name Role Phone Kimber Solorio MD Primary Care Provider [phone] Encounter Details Date Type Department Care Team (Late st Contact Info) Description 10/10/2022 Orders Only [facility] [address] [place], [place] [phone] Kimber Solorio MD [address] [place], [place] [phone] Social History Tobacco Use Types Packs/Day Years [...] suspected to have Coronavirus/COVID-19? No / Unsure 10/09/2022 2:08 PM EST documented as of this encounter Plan of Treatment Not on file documented as of this encounter Visit Diagnoses Not on filedocumented in this encounter Care Teams Director Of Quantitative Research Relationship Specialty Start Date End Date Kimber Solorio MD [address] [place], [place] [phone] PCP - General Family Medicine 07/06/20 documented as of this encounter
--- OUTSIDE RECORDS SUMMARY | 2024-11-19 16:35 | XMS_ITS | Clinical Summary ---
Author Organization [facility] Address [address] [place] [address] Care Team Providers Care Meat Department Manager Name Role Phone Kimbre Solorio MD Primary Care Provider [phone] Allergies Active Allergy Reactions Criticality Noted Date Comments Prochlorperazine 07/22/2020 Medications Medication Sig Dispensed Refills Start Date End Date Status apixaban (ELIQUIS) 5 MG TABS tablet Take 5 mg by mouth every 12 (twelve) hours. 0 Active Active Problems Problem Noted Date Diagnosed Date Pulmonary embolism 07/25/2020 Family History Medical History Relation Name Comments Cancer Paternal Aunt Relation Name Status Comments Paternal Aunt Social History Tobacco Use Types Packs/Day Years Used Date Smoking Tobacco: Never Smokeless Tobacco: Never Alcohol Use Standard Drinks/Week Comments No 0 (1 standard drink = 0.6 oz pur e alcohol) Sex and Gender Information Value Date Recorded Sex Assigned at Not on file Gender Identity Not on file Sexual Orientation Not on file Last Filed Vital Signs Vital Sign Reading Time Taken Comments Blood Pressure 111/82 07/25/2020 2:10 PM EDT Pulse 73 07/25/2020 2:10 PM EDT Temperature 36.2 ??C (97.1 ??F) 07/25/2020 2:10 PM ED T Respiratory Rate - - Oxygen Saturation - - Inhaled Oxygen Concentration - - Weight 61.9 kg (136 lb 6.4 oz) 07/25/2020 2:10 P M EDT Height 162.6 cm (5' 4 ) 07/25/2020 2:10 PM EDT Body Mass Index 23.41 07/25/2020 2:10 PM EDT Plan of Treatment Health Maintenance Due Date Last Done Comments Hepatitis B Vaccines (1 of 3 - 3-dose series) 1982 Hepatitis C Screening 1982 COVID-19 Vaccine (#1) 1982 Depression Screening 1994 Preventative Health Evaluation 01/10/2000 DTap / Tdap / Td (1 - Tdap) 2001 Cervical Cancer Screening (P ap Smear) 2003 Influenza Vaccine (#1) 2024 Pneumococcal Vaccine Aged Out No long er eligible based on patient's age to complete this topic RSV Ped < 20 months Aged Out No longe r eligible based on patient's age to complete this topic Care Teams Meat Department Manager Relationship Specialty Start Date End Date Kimber Solorio MD [address] [place] [id number] PCP - General Pediatrics 07/25/20
[2024-11-19 17:50] LABS: MANUAL DIFF FLAG NO
[2024-11-19 17:56] LABS: Basophils Absolute Auto 0.1 X10*3/uL (0.0-0.2); Basophils Percent Auto 0.5 % (0-2); Eosinophils Absolute Auto 0.1 X10*3/uL (0.0-0.4); Eosinophils Percent Auto 0.6 % (0-4); Hemoglobin 13.6 g/dl (12.0-16.0); Imm Gran Abs Auto 0.04 X10*3/uL (0.00-0.03); Imm Gran Pct Auto 0.4 % (0.0-0.4); Lymphocytes Absolute Auto 3.2 X10*3/uL (1.2-4.9); Mean Corpuscular Hemoglobin 31.2 pg (27.0-33.0); Mean Corpuscular Volume 91.7 fL (80.0-98.0); Mean Platelet Volume 10.1 fL (9.4-12.3); Monocytes Absolute Auto 0.8 X10*3/uL (0.1-1.2); Monocytes Percent Auto 7.4 % (2-11); Neutrophils Absolute Auto 6.8 x10*3/uL (2.0-8.3); Neutrophils Percent Auto 62.1 % (45-73); Platelet Count 338 X10*3/uL (160-400); Red Blood Count 4.36 X10*6/uL (4.20-5.50); Red Cell Distribution Width 12.3 % (11.0-16.0); White Blood Count 10.9 X10*3/uL (4.8-10.8)
[2024-11-19 18:16] LABS: Alanine Aminotransferase 12 U/L (0-31); Albumin Level 4.5 g/dL (3.5-5.0); Alkaline Phosphatase 52 U/L (39-117); Anion Gap 10 (12-20); Aspartate Amino Transferase 21 U/L (5-31); Bilirubin Total 0.8 mg/dL (0.0-1.0); Blood Urea Nitrogen 8 mg/dL (9-16); Calcium 9.5 mg/dL (8.4-10.2); Carbon Dioxide 24 mmol/L (22-29); Chloride 107 mmol/L (96-108); Estimated Glomerular Filt Rate > 60; Glucose Random 75 mg/dL (60-115); Potassium 3.2 mmol/L (3.3-5.1); Sodium 138 mmol/L (135-145); Total Protein 7.8 g/dL (6.5-8.0)
[2024-11-20 08:06] LABS: HIV AB/AG Nonreactive (Nonreactive); HIV Num 1 0.04 S/CO (0.00-0.99)
== END 2024-11-19 13:59 | disposition home or self-care (01) ==
LOC: HO.CHCLDS 13:58
PROVIDERS: Visit Provider Pediatrics
DX: Z01.818 Encounter for other preprocedural examination (principal)
CPT/HCPCS: 36415; 80053; 84443; 85025; 85610; 87389